=== PATIENT | male | born 1995 | race Hispanic/Latino ===

== ENCOUNTER 2020-05-08 01:50 | Emergency (ER) | payer SELFPAY ==
[~2020-05-08] VITALS: Ht 167.6 cm; Wt 68.0 kg
[2020-05-08 02:12] LABS: BILIRUBIN,URINE NEGATIVE (NEGATIVE); CLARITY,URINE CLEAR (CLEAR); COLOR,URINE YELLOW (YELLOW); KETONES,URINE NEGATIVE (NEGATIVE); LEUKOCYTE ESTERASE ,URINE NEGATIVE (NEGATIVE); NITRITE,URINE NEGATIVE (NEGATIVE); PROTEIN,URINE DIPSTICK NEGATIVE (NEGATIVE); URINE UROBILINOGEN 0.2 mg/dL (0.2 - 1)
[2020-05-08] MEDS ORDERED: ONDANSETRON HCL 4 MG ORAL DISINTEGRATING TAB PO ONE (02:15)
[2020-05-08] MEDS ORDERED: AZITHROMYCIN 250 MG TAB PO ONE (02:15)
[2020-05-08] MEDS ORDERED: CEFTRIAXONE SOD 250 MG VIAL IM ONE (02:15)
[2020-05-08] MEDS ORDERED: METRONIDAZOLE 500 MG TAB PO ONE (02:15)
[2020-05-08 02:19] LABS: BACTERIA,URINE RARE /HPF; EPITHELIAL CELLS,URINE FEW /LPF; WBC,URINE (MAN) 0-5 /HPF (0-5)
[2020-05-08] MEDS ORDERED: LIDOCAINE HCL 1% 2 ML AMP ONE (02:20)
[2020-05-08 02:39] VITALS: BP 126/77
== END 2020-05-08 02:54 | disposition home or self-care (01) ==
LOC: ER 01:57
DX: A64 Unspecified sexually transmitted disease (principal); F17.210 Nicotine dependence, cigarettes, uncomplicated
CPT/HCPCS: 81001; 99283; J0696; J2001; Q0162

== ENCOUNTER 2020-12-11 19:37 | Emergency (ER) | payer SELFPAY ==
[~2020-12-11] VITALS: Ht 167.6 cm; Wt 68.0 kg
[2020-12-11] MEDS ORDERED: ZITHROMAX500 MG PO (20:27)
[2020-12-11] MEDS ORDERED: DOXYCYCLINE MO100 M1 PO (20:27)
== END 2020-12-11 21:00 | disposition home or self-care (01) ==
LOC: ER 20:27
DX: R30.0 Dysuria (principal); A64 Unspecified sexually transmitted disease
CPT/HCPCS: 99282